=== PATIENT | female | born 1945 | race Caucasian/White ===

== ENCOUNTER 2016-11-23 07:19 | Day surgery (SDC) | payer MEDICARE, MEDICAID ==
[~2016-11-23 07:19] MED LIST: RINGER'S SOLUTION,LACTATED 1,000 ML IV PRN
[2016-11-23 10:18] VITALS: BP 101/58
--- NOTE | 2016-11-23 10:33 | OR ---
Operative Report - Dictated Report Narrative: Date: 11/23/2016 Preop dx: Screen for colon cancer Postop dx: 5mm polyp (probable hyperplastic) 80cm, 7mm polyp (probable hyperplastic) 40cm. Moderate sigmoid diverticulosis Procedure: Total colonoscopy Staff surgeon: Darío Hale MD Anesthesia: MAC per [employer] PSYCHOLOGIST EBL: minimal Specimen: Polyps 80cm, 40cm Procedure: After informed consent and appropriate sedation the patient was placed in the left lateral decubitus position. A flexible fiberoptic video colonoscope was introduced and advanced under direct vision to the cecum. The usual landmarks were identified. Preparation was excellent and excellent views were obtained. The findings were of a normal cecum, ascending colon, hepatic flexure, proximal transverse colon. distal transverse had a probable 5mm hyperplastic polyp that was biopsied with a cold forcep and appeared completely removed. There was a normal descending colon. The sigmoid colon had moderate diverticulosis. A probable hyperplastic 7mm polyp was identified and was biopsied with cold forceps. The remainder of the polyp was destroyed with electrocauter. The was a normal rectum. She had one hypertrophied anal papilla to a mild degree. The mucous color, vasculature and texture were normal throughout. No suspicious masses were seen. The patient tolerated the procedure well without apparent complications and was discharged from the endoscopy suite in stable condition.
== END 2016-11-23 07:20 | disposition home or self-care (01) ==
LOC: SUR 07:19
PROVIDERS: ATTEND Specialist
PROC: 0DBN8ZX Excision of Sigmoid Colon, Via Natural or Artificial Opening Endoscopic, Diagnostic (ICD-10-PCS; 2016-11-23)
PROC: 0DBL8ZX Excision of Transverse Colon, Via Natural or Artificial Opening Endoscopic, Diagnostic (ICD-10-PCS; principal; 2016-11-23 08:00)
DX: Z12.11 Encounter for screening for malignant neoplasm of colon (principal); K63.5 Polyp of colon; K57.30 Diverticulosis of large intestine without perforation or abscess without bleeding; I10 Essential (primary) hypertension; E78.5 Hyperlipidemia, unspecified; E03.9 Hypothyroidism, unspecified; J44.9 Chronic obstructive pulmonary disease, unspecified; F17.200 Nicotine dependence, unspecified, uncomplicated; Z68.31 Body mass index [BMI] 31.0-31.9, adult